=== PATIENT | male | born 1960 ===

== ENCOUNTER → 2016-06-18 | Day surgery (SDC) | payer OTHER ==
[~2016-06-18] MED LIST: ACETAMINOPHEN 1000 MG/100 ML VIAL IV ONE; BUPIVACAINE/EPINEPHRINE 0.25% PF 10 ML VIAL ONE; BUPIVACAINE/EPINEPHRINE 0.5% 50 ML VIAL ONE; LACTATED RINGER'S 1000 ML INJ 1,000 ML ONE; LIDOCAINE 1%/EPINEPHrine 1:100,000 SOLN 50 ML VIAL ONE; METHYLENE BLUE 100 MG/10 ML VIAL ONE; MIDAZOLAM HCL 2 MG/2 ML VIAL ONE; NEOMYCIN/POLYMYXIN/BACITRACIN OINT 15 GM TUBE ONE; ONDANSETRON HCL 4 MG/2 ML VIAL IV PUSH ONE; PROPOFOL 200 MG/20 ML AMP IV ONE; ceFAZolin INJ 1,000 MG VIAL ONE
--- NOTE | 2016-06-18 09:38 | TN ---
cc: SHIN PIERRE M.D. DATE OF SURGERY 06/18/2016 PREOPERATIVE DIAGNOSIS Pilonidal cyst POSTOPERATIVE DIAGNOSIS Pilonidal cyst PROCEDURE Excision of pilonidal cyst with the defect measuring 4 x 2-1/2 cm. ANESTHESIA General SURGEON Shin Pierre MD PROCEDURE Excision of pilonidal using 4 x 2-1/2 cm elliptical incision. INDICATION This is a pleasant gentleman who had a pilonidal that was inflamed. It was treated with antibiotics. The inflammation has regressed somewhat. Plans were made for excision. PROCEDURE The patient taken to the operating room, placed in the supine position and after placed in the prone position after anesthesia, the area was shaved. His gluteal cheeks were then retracted using silk tape. We then prepped and drape with Betadine. We gave him preoperative antibiotics. We make an elliptical incision around the defect making the elliptical incision 4-1/2 x 2 cm. Prior to making the incision, I did take an Angiocath and injected about a cc of methylene blue dye into the cavity to delineate the extent of it. It did not appear to be that deep. We then made the ellipse, dissecting down approximately 2 cm deep and removed the specimen completely. This was passed off the field. We then irrigate with Betadine and saline. The tape retractors were then removed and the deep layers were reapproximated with 2-0 Vicryl and skin is reapproximated with interrupted 3-0 nylon. The patient tolerated the procedure well and had no immediate postop complications. MD JULITA Mchugh/MIGUEL /9:12 AM /9:29 AM
== END | disposition home or self-care (01) ==
LOC: ESDC 06:44
PROVIDERS: ATTEND Surgery
DX: L05.91 Pilonidal cyst without abscess (principal)
CPT/HCPCS: 00300; 11770; 88304; J0131; J0690; J2250; J2405; J3010; J7120